=== PATIENT | female | born 1990 | race Caucasian/White ===

== ENCOUNTER 2017-02-21 06:03 | Inpatient (IN) | payer BC, OTHER, SELFPAY ==
[2017-02-21 06:35] VITALS: BMI 20.5
[2017-02-21] MEDS ORDERED: Meperidine HCl/PF 25 MG/ML VIAL IM/IV PRN (06:57)
[2017-02-21] MEDS ORDERED: Acetaminophen 500 MG TAB PO PRN (06:57)
[2017-02-21] MEDS ORDERED: Promethazine HCl 25 MG/ML VIAL IM PRN (06:57)
[2017-02-21] MEDS ORDERED: Lidocaine 1% (PF) 30 ML VIAL SC PRN (06:57)
[2017-02-21] MEDS ORDERED: LR / Pitocin 40 units/1000 ml 1,000 ML IV PRN (06:57)
[2017-02-21] MEDS ORDERED: Ondansetron HCl/PF 4 MG/2 ML Vial IVP PRN (06:57)
[2017-02-21 07:57] LABS: Mean Platelet Volume 9.6 fL (7.4-10.4); Red Blood Cell (RBC) Count 4.29 mill/uL (4.20-5.40); White Blood Cell (WBC) Count 19.4 thou/uL (4.8-10.8)
--- NOTE | 2017-02-21 10:32 | PDOC.OPDEL ---
OB Operative/Delivery Note Delivery Dr/Surgeon: Julissa Pre-Delivery Diagnosis: active labor Procedure/Post Delivery Dx: spontaneous vaginal delivery Weeks gestation: 39 Anesthesia: local - Findings A Sex: male - 5 min: 9 - 10 min: 9 - Additional Findings/Plan Placenta delivered: spontaneous Repaired Obstetrical Laceration: 2nd degree Estimated blood loss: 300ml Post delivery plan: routine recovery
[2017-02-21] MEDS ORDERED: Adacel (T-DAP) 0.5 ML VIAL IM ONE (10:33)
[2017-02-21] MEDS ORDERED: Lanolin Ointment 7 GM TUBE TOP PRN (10:33)
[2017-02-21] MEDS ORDERED: traMADol HCl 50 MG TAB PO PRN (10:33)
[2017-02-21] MEDS ORDERED: Milk Of Magnesia 30 ML UDCUP PO PRN (10:33)
[2017-02-21] MEDS ORDERED: diphenhydrAMINE HCl 25 MG CAP PO PRN (10:33)
[2017-02-21] MEDS ORDERED: Bisacodyl 10 MG SUPP PR PRN (10:33)
[2017-02-21] MEDS ORDERED: Benzocaine/Menthol 20-0.5% 60 ML CAN TOP PRN (10:33)
[2017-02-21] MEDS ORDERED: LR / Pitocin 40 units/1000 ml 1,000 ML IV SCH (10:45)
[2017-02-21] MEDS: Ibuprofen 800 MG TAB PO SCH ×2 (11:29→22:04)
[2017-02-21] MEDS: Ferrous Sulfate 325 MG TAB PO SCH (16:37)
[2017-02-21] MEDS: Docusate (Surfak) 240 MG CAP PO SCH (22:04)
[2017-02-22] MEDS: Ibuprofen 800 MG TAB PO SCH ×3 (05:25→21:21)
--- NOTE | 2017-02-22 07:52 | PDOC.PP ---
Post Progress Note Post Day #: 1 PO intake tolerated: yes Flatus: yes Ambulation: yes Vital Signs (12 hours) Temp Pulse Resp BP BP 02/22/17 05:30 98.0 F 64 16 106/57 L 02/22/17 00:35 98.2 F 100 16 109/73 02/21/17 19:51 98.1 F 82 16 125/64 Weight Weight 127 lb - Physical Examination General: NAD Cardiovascular: no m/r/g, RRR Respiratory: clear to ausculation bilateral Abdominal: + bowel sounds, lochia, no distention, appropriately TTP Result Diagrams: 02/21/17 07:37 Additional Labs: Post Labs Blood Type O NEGATIVE 02/21/17 07:20 Hep Bs Antigen Non-Reactive S/CO (NonReactive) 02/21/17 07:37 - Assessment/Plan doing well post day 1 d/c in AM
[2017-02-22] MEDS: Ferrous Sulfate 325 MG TAB PO SCH ×2 (09:14→14:05)
[2017-02-22] MEDS: Prenatal Vitamin 1 TAB PO SCH (09:16)
[2017-02-22] MEDS: Docusate (Surfak) 240 MG CAP PO SCH ×2 (09:16→21:21)
[2017-02-23] MEDS: Ibuprofen 800 MG TAB PO SCH (05:49)
[2017-02-23 07:52] VITALS: BP 113/63; TEMP 98.2
--- NOTE | 2017-02-23 08:24 | PDOC.PP ---
Post Progress Note Post Day #: 2 PO intake tolerated: yes Flatus: yes Ambulation: yes Vital Signs (12 hours) Temp Pulse Resp BP 02/23/17 07:50 98.2 F 94 18 113/63 Weight Weight 127 lb - Physical Examination General: NAD Cardiovascular: no m/r/g, RRR Respiratory: clear to ausculation bilateral Abdominal: + bowel sounds, lochia, no distention, appropriately TTP Result Diagrams: 02/21/17 07:37 Additional Labs: Post Labs Blood Type O NEGATIVE 02/21/17 07:20 Hep Bs Antigen Non-Reactive S/CO (NonReactive) 02/21/17 07:37 - Assessment/Plan doing well. d/c home. f/u 6 weeks post .
[2017-02-23] MEDS: Ferrous Sulfate 325 MG TAB PO SCH (09:11)
[2017-02-23] MEDS: Prenatal Vitamin 1 TAB PO SCH (09:12)
[2017-02-23] MEDS: Docusate (Surfak) 240 MG CAP PO SCH (09:12)
== END 2017-02-23 13:30 | disposition home or self-care (01) | DRG 775 ==
LOC: L&D/OP 06:03 → L&D 06:45 → 3SW 13:20
PROVIDERS: ADMIT Obstetrics & Gynecology; ATTEND Obstetrics & Gynecology
PROC: 10E0XZZ Delivery of Products of Conception, External Approach (ICD-10-PCS; principal; 2017-02-21)
PROC: 0KQM0ZZ Repair Perineum Muscle, Open Approach (ICD-10-PCS; 2017-02-21)
PROC: 3E0334Z Introduction of Serum, Toxoid and Vaccine into Peripheral Vein, Percutaneous Approach (ICD-10-PCS; 2017-02-21)
DX: O70.1 Second degree perineal laceration during delivery (principal); Z37.0 Single live birth; O26.893 Other specified pregnancy related conditions, third trimester; Z3A.39 39 weeks gestation of pregnancy; Z67.91 Unspecified blood type, Rh negative
CPT/HCPCS: 36415; 85027; 85461; 86780; 87340; 90384; 90715; 96372; J2001